=== PATIENT | male | born 2005 | race Caucasian/White ===

== ENCOUNTER 2025-06-14 20:00 | Emergency (ER) | payer BC, SELFPAY ==
[2025-06-14 20:10] VITALS: BP 128/59
--- NOTE | 2025-06-14 21:15 | ED.GENMED ---
History of Present Illness
General
Chief Complaint: Skin Surface Trauma
Source: patient
Time Seen by Provider: 06/14/25 20:58
History of Present Illness
History of Present Illness:
Patient is a 20-year-old male who is here for a laceration on his left thumb while he was moving things around in the house.
He did apply pressure bandage to it, but it bleeds anytime he moves his thumb and he is here for something to help with the bleeding so that he can drive back to his school which he supposed to do tonight
Remaining review of systems is negative
Past History
Social History
Tobacco: Non-smoker
Alcohol: None
Drug: None
Review of Systems
Review of Systems
All Other Systems: ROS reviewed and negative except as documented in HPI and ROS
Phy Exam
General Physical Exam
General Presentation: well appearing and no apparent distress
Cardiovascular Exam
Cardiovascular Exam: regular rate/rhythm, no gallop, no murmur and normal peripheral pulses
Pulmonary Exam
Pulmonary Exam: lungs clear and no respiratory distress
Gastrointestinal Exam
Gastrointestinal Exam: normal bowel sounds, non tender and soft
Neurological Exam
Neurological Exam: alert and oriented x3
Musculoskeletal Exam
Musculoskeletal Exam: full ROM and other (Maceration on thumb, involving superficial skin, pressure bandage with some bleeding on it)
Psychiatric Exam
Psychiatric Exam: normal mood/affect
Course
Vital Signs
Initial and Last Documented VS:
Initial Vital Signs
Temp Pulse Resp BP Pulse Ox
98.5 F 79 18 128/59 98
06/14/25 20:10 06/14/25 20:10 06/14/25 20:10 06/14/25 20:10 06/14/25 20:10
Last Documented Vital Signs
Temp Pulse Resp BP Pulse Ox
98.5 F 79 18 128/59 98
06/14/25 20:10 06/14/25 20:10 06/14/25 20:10 06/14/25 20:10 06/14/25 20:10
MDM/Problems Addressed
Differential Diagnosis Includes:
Thumb laceration
MDM/Problems Addressed:
Superficial skin laceration, glued together with Steri-Strips applied.
Advised to avoid anything that could be painful and affect the healing
Able to do normal activities without any restrictions
Reassured and discharged the patient
*Pulse Oximetry
SaO2: 98
Oxygen Mode of Delivery: Room air
Patient hypoxic: no
*Critical Care Note
Total Time (30-74mins, 75-104mins- exclusive of procedures): Not Applicable
ED Attending Note
-
Portions of this chart may have been created with voice recognition software.� Occasional wrong word or��sound alike� substitutions may have occurred due to the inherent limitations of voice recognition software.
Discharge Plan
Departure
Prescriptions:
No Action
No Current Medications
0
Interventions
Interventions:
*Risk Screen - Suicide Last Done: 06/14/25 20:10
*General Assessment Last Done: 06/14/25 20:10
*Neglect/Abuse Screening Last Done: 06/14/25 20:51
*ED- Fall Risk Assessment Last Done: 06/14/25 20:10
*ED COVID-19 Vaccine History Last Done: 06/14/25 20:10
*ED Influenza Vaccine History Last Done: 06/14/25 20:10
ED-Skin Assessment Last Done: 06/14/25 21:07
Discharge Date and Time
Print Language: IRISH
== END 2025-06-14 21:52 | disposition home or self-care (01) ==
LOC: EMR 20:00
PROVIDERS: EMERGENCY PHYSICIAN Emergency Medicine; FAMILY PHYSICIAN Pediatrics
DX: S61.012A Laceration without foreign body of left thumb without damage to nail, initial encounter (principal); W45.8XXA Other foreign body or object entering through skin, initial encounter
CPT/HCPCS: 99282